=== PATIENT | female | born 1990 | race Caucasian/White ===

== ENCOUNTER 2020-11-12 10:19 | Emergency (ER) | payer MEDICAID, OTHER ==
[~2020-11-12] VITALS: Ht 165.1 cm; Wt 61.1 kg
[2020-11-12 10:24] VITALS: BP 116/66
--- NOTE | 2020-11-12 10:43 | NUR ---
APPROX 2 TWO 3 WEEKS PREGANT. HAD BEEN CRAMPING BUT THAT HAS SUBSIDED. HERE FOR RECHECK HCG
--- NOTE | 2020-11-12 10:54 | NUR ---
ERYTHEMA RIGHT HAND, PAINFUL TO TOUCH. RING CUT OFF FROM RIGHT MIDDLE FINGER BY MICHELE JIM
--- NOTE | 2020-11-12 11:17 | NUR ---
Patient given discharge instructions and prescription and they have confirmed that they understand the instructions. Patient stable and ambulatory with steady gait from ED with significant other to private vehicle. No patient belongings left in room.
== END 2020-11-12 11:18 | disposition home or self-care (01) ==
LOC: ED 10:46
DX: O26.891 Other specified pregnancy related conditions, first trimester (principal); S50.861A Insect bite (nonvenomous) of right forearm, initial encounter; S80.261A Insect bite (nonvenomous), right knee, initial encounter; S90.862A Insect bite (nonvenomous), left foot, initial encounter; S90.861A Insect bite (nonvenomous), right foot, initial encounter; L03.113 Cellulitis of right upper limb; Z85.41 Personal history of malignant neoplasm of cervix uteri; Z3A.10 10 weeks gestation of pregnancy; W57.XXXA Bitten or stung by nonvenomous insect and other nonvenomous arthropods, initial encounter; Y93.89 Activity, other specified; Y92.89 Other specified places as the place of occurrence of the external cause; Y99.8 Other external cause status
CPT/HCPCS: 99283